=== PATIENT | female | born 1940 | race Caucasian/White ===

== ENCOUNTER 2020-01-13 08:14 | Day surgery (SDC) | payer MEDICARE, OTHER ==
[~2020-01-13 08:14] MED LIST: Cefuroxime 10 MG/ML SYRINGE EYERT SCH; Lidocaine 1% PF 2 ML SDV INJECT SCH; Pilocarpine 4% Ophth Soln 15 ML Bot EYERT SCH; Polymyxin B/Trimethoprim 10 ML Bottle EYERT SCH
[2020-01-13] MEDS: Ofloxacin 0.3% Ophth Soln 5 ML Bottle EYERT SCH ×2 (09:37→10:20)
[2020-01-13] MEDS: Brimonidine 0.2% Ophth Soln 5 ML Bottle EYERT SCH ×3 (09:45→11:19)
[2020-01-13] MEDS: Phenylephrine 2.5% Ophth Soln 2 ML Bot EYERT SCH ×5 (09:50→11:05)
[2020-01-13] MEDS: Tropicamide 1% Ophth Soln 15 ML Bottle EYERT SCH ×5 (09:55→10:55)
--- NOTE | 2020-01-13 10:19 | PCM.PREANE ---
Preanesthetic Assessment - Anesthesia/Transfusion/Family Hx Anesthesia History: Prior Anesthesia Without Reaction Family History of Anesthesia Reaction: No Transfusion History: No Prior Transfusion(s) Intubation History: Unknown - Review of Systems General: No Symptoms Pulmonary: No Symptoms Cardiovascular: No Symptoms (elevated cholesterol, CAD) Gastrointestinal: No Symptoms (GERD-controlled), Difficulty Swallowing Neurological: No Symptoms (TIA last noted 2 months ago and on plavix (last dose yesterday)) Other: Reports: Easy Bruising, Sinus Problem (chronic rhinitis), Depression, Anxiety - Physical Assessment NPO Status Date: 01/12/20 NPO Status Time: 22:00 Vital Signs: Last Vital Signs Temp 36.4 C 01/13/20 09:35 Pulse 53 L 01/13/20 09:35 Resp 12 01/13/20 09:35 BP 132/68 01/13/20 09:35 Pulse Ox 96 01/13/20 09:35 Height: 1.68 m Weight: 74.389 kg ASA Class: 2 Mental Status: Alert & Oriented x3 - Allergies Allergies/Adverse Reactions: Allergies Allergy/AdvReac Type Severity Reaction Status Date / Time nitrofurantoin Allergy Cannot Verified 01/13/20 09:56 [From Macrobid] Remember - Anesthesia Plan Pre-Op Medication Ordered: None - Acknowledgements Anesthesia Type Planned: MAC Pt an Appropriate Candidate for the Planned Anesthesia: Yes Alternatives and Risks of Anesthesia Discussed w Pt/Guardian: Yes Pt/Guardian Understands and Agrees with Anesthesia Plan: Yes PreAnesthesia Questionnaire Cardiovascular History: Reports: High Cholesterol Other Cardiovascular History: History of palpitations Gastrointestinal History: Reports: GERD Other Genitourinary History: History of hematuria. HEAD CHARRER History: Reports: Other OB/BYN History: Postmenopausal Musculoskeletal History: Reports: Osteoarthritis Psychiatric History: Reports: Anxiety, Depression Dermatologic History: Reports: Other (See Below) - Past Surgical History GI Surgical History: Reports: Other (See Below) Female Surgical History: Reports: Tubal Ligation Musculoskeletal Surgical History: Reports: Hip Replacement Oncologic Surgical History: Reports: Biopsy of Breast - HOME MEDS Home Medications: Home Meds Pantoprazole [ProTONIX] 40 mg PO DAILY@0600 #30 tab.cr 01/13/16 [Rx] Carboxymethylcellulose Sodium [Artificial Tears] 1 dose EYEBOTH ASDIRECTED 01/12/20 [History] Clopidogrel Bisulfate [Clopidogrel] 75 mg PO DAILY 01/12/20 [History] Dexamethasone/Tobramycin [Tobradex Ophth Susp] 1 dose EYEBOTH ASDIRECTED 01/12/20 [History] Escitalopram Oxalate [Lexapro] 10 mg PO DAILY 01/12/20 [History] Rosuvastatin Calcium 20 mg PO DAILY 01/12/20 [History] Vit A/Vit C/Vit E/Zinc/Copper [Preservision] 1 tab PO DAILY 01/12/20 [History] - CURRENT (IN HOUSE) MEDS Current Meds: Current Medications Brimonidine Tartrate (Alphagan 0.2% Oph Soln) 0 ml EYERT ASDIRECTED [facility] Stop: 01/13/20 18:00 Last Admin: 01/13/20 09:45 Dose: 1 drop Documented by: Cefuroxime Sodium (Zinacef) 0 mg EYERT ASDIRECTED [facility] Stop: 01/13/20 18:00 Lidocaine HCl (Xylocaine-Mpf 1%) 0 ml INJECT ASDIRECTED [facility] Stop: 01/13/20 18:00 Ofloxacin (Ocuflox 0.3% Oph Soln) 0 ml EYERT ASDIRECTED [facility] Stop: 01/13/20 18:00 Last Admin: 01/13/20 09:37 Dose: 1 drop Documented by: Phenylephrine HCl (George-Synephrine 2.5% Oph Soln) 0 ml EYERT ASDIRECTED [facility] Stop: 01/13/20 18:00 Last Admin: 01/13/20 10:08 Dose: 1 drop Documented by: Pilocarpine HCl (Pilocar 4% Oph Soln) 0 ml EYERT ASDIRECTED [facility] Stop: 01/13/20 18:00 Tetracaine HCl (Tetracaine 0.5% Steri-Unit Olga) 0 ml EYEBOTH ASDIRECTED [facility] Stop: 01/13/20 18:00 Tropicamide (Mydriacyl 1% Oph Soln) 0 ml EYERT ASDIRECTED [facility] Stop: 01/13/20 18:00 Last Admin: 01/13/20 10:13 Dose: 1 drop Documented by: Discontinued Medications Polymyxin/Trimethoprim Sulfate (Polytrim Oph Soln) 0 ml EYERT ASDIRECTED [facility]
[2020-01-13] MEDS: Tetracaine HCl/PF 0.5% 4 ML Bottle EYEBOTH SCH ×4 (10:47→11:12)
--- NOTE | 2020-01-13 12:11 | PCM48HPAN ---
Post Anesthesia Note - EVALUATION WITHIN 48HRS OF ANESTHETIC Vital Signs in Normal Range: Yes Patient Participated in Evaluation: Yes Respiratory Function Stable: Yes Airway Patent: Yes Cardiovascular Function Stable: Yes Hydration Status Stable: Yes Pain Control Satisfactory: Yes Nausea and Vomiting Control Satisfactory: Yes Mental Status Recovered: Yes Vital Signs: Last Vital Signs Temp 97.6 F 01/13/20 09:35 Pulse 53 L 01/13/20 09:35 Resp 12 01/13/20 09:35 BP 132/68 01/13/20 09:35 Pulse Ox 96 01/13/20 09:35
[2020-01-13 12:22] VITALS: BP 122/57; PULSE 62
== END 2020-01-13 11:30 | disposition home or self-care (01) ==
LOC: JD.SDS 08:14
PROVIDERS: ATTEND Ophthalmology
DX: H25.811 Combined forms of age-related cataract, right eye (principal); E78.00 Pure hypercholesterolemia, unspecified; Z88.8 Allergy status to other drugs, medicaments and biological substances; Z98.42 Cataract extraction status, left eye; Z79.899 Other long term (current) drug therapy
CPT/HCPCS: 66984; C1780; J0697; J2001; A9270-GY